=== PATIENT | male | born 1985 | race Two or more races ===

== ENCOUNTER → 2019-06-26 | Emergency (ER) | payer SELFPAY ==
[~2019-06-26] VITALS: Ht 185.4 cm; Wt 83.9 kg
[~2019-06-26] MED LIST: PENICILLIN G BENZ 1200000 UNITS/2 ML SYRG IM ONE
[2019-06-26 19:21] VITALS: BP 123/75
== END | disposition home or self-care (01) ==
LOC: ER 19:09
DX: A51.0 Primary genital syphilis (principal); Z20.2 Contact with and (suspected) exposure to infections with a predominantly sexual mode of transmission
CPT/HCPCS: 86592; 96372; 99283; J0561

== ENCOUNTER 2019-08-30 15:24 | Emergency (ER) | payer SELFPAY ==
[~2019-08-30] VITALS: Ht 185.4 cm; Wt 83.9 kg
[2019-08-30 15:38] VITALS: BP 125/53
== END 2019-08-30 17:23 | disposition home or self-care (01) ==
LOC: ER 15:24
DX: B37.42 Candidal balanitis (principal)